=== PATIENT | female | born 1980 | race Caucasian/White ===

== ENCOUNTER 2021-05-14 05:49 | Emergency (ER) | payer MEDICAID ==
[~2021-05-14] VITALS: Ht 154.9 cm; Wt 87.0 kg
[2021-05-14] MEDS ORDERED: MORPHINE SULFATE 4 MG/ML CPJ (NOT FOR IM USE) IV ONE (06:00)
[2021-05-14] MEDS ORDERED: OXYC-100 PO (06:45)
[2021-05-14] MEDS ORDERED: IBUP-2028 PO (06:46)
[2021-05-14] MEDS ORDERED: KETOROLAC 30MG/ML VIAL IV ONE (07:00)
[2021-05-14 10:31] VITALS: BP 96/55
== END 2021-05-14 10:36 | disposition home or self-care (01) ==
LOC: ER 05:49
DX: S82.291A Other fracture of shaft of right tibia, initial encounter for closed fracture (principal); S82.491A Other fracture of shaft of right fibula, initial encounter for closed fracture; W18.39XA Other fall on same level, initial encounter; Y93.89 Activity, other specified; Y92.89 Other specified places as the place of occurrence of the external cause; Y99.8 Other external cause status
CPT/HCPCS: 29505; 73120; 73590; 73600; 96374; 96375; 99284; J1885; J2270